=== PATIENT | male | born 1980 | race Caucasian/White ===

== ENCOUNTER 2018-08-14 16:24 | Outpatient (REF) | payer BC, SELFPAY ==
[2018-08-14 21:43] LABS: Abs Immature Grans 0.03 k/cumm (0.0-0.09); Absolute Basophil Count 0.03 k/cumm (0.0-0.2); Absolute Eosinophil Count 0.32 k/cumm (0.0-0.7); Absolute Monocyte Count 1.15 k/cumm (0.11-0.7); Absolute Neutrophil Count 7.64 k/cumm (1.2-6.7); Basophils % 0.2; Eosinophils % 2.4; HCT 46.4 % (40.0-50.0); HGB 15.7 g/dL (13.5-17.5); Immature Grans % 0.2; Lymphocytes % 30.9; Mean Corp. HGB Concentration 33.8 g/dL (32.0-36.0); Mean Corpuscular Hemoglobin 30.3 pg (27.0-33.0); Mean Corpuscular Volume 89.6 fL (80-95); Mean Platelet Volume 10.7 fL (8.0-11.0); Monocytes % 8.7; Neutrophils % 57.6; Platelet Count 319 x1000/uL (130-400); RBC 5.18 m/cumm (4.50-6.00); RBC Distribution Width 13.9 % (11.8-14.1); White Blood Cell Count 13.26 k/cumm (4.4-10.8)
[2018-08-14 22:31] LABS: ALT 43 U/L (12-78); AST 22 U/L (15-37); Albumin 4.1 g/dL (3.4-5.0); Alkaline Phosphatase 97 U/L (46-116); Anion Gap 11.9 mmol/L (3-11); BUN 11 mg/dL (7-18); Bilirubin, Total 0.5 mg/dL (0.2-1.0); CO2 26.1 mmol/L (21.0-32.0); CREATININE 0.91 mg/dL (0.70-1.30); Calcium 9.1 mg/dL (8.5-10.1); Chloride 105 mmol/L (98-107); Glucose 77 mg/dL (70-100); Lipase 108 U/L (73-393); Potassium 3.8 mmol/L (3.5-5.1); Sodium 143 mmol/L (136-145); Total Protein 7.3 g/dL (6.4-8.2)
== END 2018-08-14 16:44 ==
LOC: NCHCN 16:24
PROVIDERS: PCP Hospitalist; Visit Provider Registered Nurse
DX: R10.9 Unspecified abdominal pain (principal)
CPT/HCPCS: 80053; 83690; 85025

== ENCOUNTER 2020-11-10 12:50 | Outpatient (REF) | payer MEDICAID, SELFPAY ==
[2020-11-10 14:02] LABS: Iron 83 ug/dL (65-175); Total Iron Binding Capacity 351 ug/dL (250-450); Transferrin Sat 24 % (20-55)
[2020-11-10 14:16] LABS: Ferritin 74 ng/mL (26-388)
== END 2020-11-10 13:10 ==
LOC: NCHCN 12:50
PROVIDERS: PCP Hospitalist; Visit Provider Registered Nurse
DX: G25.81 Restless legs syndrome (principal)
CPT/HCPCS: 82728; 83540; 83550

== ENCOUNTER 2020-12-28 15:25 | Outpatient (REF) | payer MEDICAID, SELFPAY ==
[2020-12-28 14:14] LABS: Anion Gap 9.7 mmol/L (3-11); BUN 11 mg/dL (7-18); CO2 25.3 mmol/L (21.0-32.0); Calcium 8.9 mg/dL (8.5-10.1); Chloride 108 mmol/L (98-107); Glucose 93 mg/dL (74-106); Potassium 3.7 mmol/L (3.5-5.1); Sodium 143 mmol/L (136-145)
== END 2020-12-28 15:26 | disposition home or self-care (01) ==
LOC: NCHCN 15:25
PROVIDERS: PCP Hospitalist; Visit Provider Nurse Practitioner Family
DX: R10.9 Unspecified abdominal pain (principal)
CPT/HCPCS: 80048

== ENCOUNTER 2021-10-04 12:46 | Outpatient (REF) | payer MEDICAID, SELFPAY ==
[2021-10-04 22:09] LABS: Abs Immature Grans 0.03 10^3/uL (0.0-0.06); Absolute Basophil Count 0.02 10^3/uL (0.0-0.2); Absolute Eosinophil Count 0.12 10^3/uL (0.0-0.7); Absolute Lymphocyte Count 2.88 10^3/uL (1.2-3.4); Absolute Neutrophil Count 5.86 10^3/uL (1.2-6.7); Basophils % 0.2; Eosinophils % 1.3; HCT 45.9 % (40.0-50.0); HGB 15.2 g/dL (13.5-17.5); Immature Grans % 0.3; Lymphocytes % 30.3; MCH 28.5 pg (27.0-33.0); MCHC 33.1 % (32.0-36.0); MPV 10.7 fL (8.0-11.0); Monocytes % 6.3; Neutrophils % 61.6; Nucleated RBC 0 %; Platelet Count 324 10^3/uL (130-400); RBC 5.34 10^6/uL (4.36-5.78); RDW 12.8 % (11.8-14.1); RDW-SD 39.7 fL; WBC 9.51 10^3/uL (4.4-10.8)
[2021-10-04 22:51] LABS: ALT 46 U/L (16-63); AST 22 U/L (15-37); Albumin 4.4 g/dL (3.4-5.0); Alkaline Phosphatase 102 U/L (46-116); BUN 12 mg/dL (7-18); Bilirubin, Total 0.7 mg/dL (0.2-1.0); Chloride 103 mmol/L (98-107); Glucose 78 mg/dL (74-106); Potassium 4.1 mmol/L (3.5-5.1); Sodium 140 mmol/L (136-145); Total Protein 7.5 g/dL (6.4-8.2)
[2021-10-05 16:45] LABS: Lipase 72 U/L (73-393)
== END 2021-10-04 12:47 | disposition home or self-care (01) ==
LOC: NCHCN 12:46
PROVIDERS: PCP Hospitalist; Visit Provider Family Medicine
DX: R10.13 Epigastric pain (principal); Z28.21 Immunization not carried out because of patient refusal
CPT/HCPCS: 80053; 80061; 83690; 85025

== ENCOUNTER 2023-01-25 10:43 | Outpatient (REF) | payer MEDICAID, SELFPAY | END 2023-01-25 10:44 | disposition home or self-care (01) | LOC: NCHCN 10:43 | PROVIDERS: PCP Hospitalist; Visit Provider Registered Nurse | DX: R10.9 Unspecified abdominal pain (principal) | CPT/HCPCS: 87086 ==

== ENCOUNTER 2024-12-19 11:52 | Outpatient (REF) | payer MEDICAID, SELFPAY ==
[2024-12-19 14:18] LABS: HCT 49.7 % (40.0-50.0); HGB 16.5 g/dL (13.5-17.5); MCH 29.9 pg (27.0-33.0); MCHC 33.2 % (32.0-36.0); MCV 90 fL (80-95); MPV 10.5 fL (8.0-11.0); Platelet Count 318 10^3/uL (130-400); RBC 5.52 10^6/uL (4.36-5.78); RDW 13.1 % (11.8-14.1); RDW-SD 42.5 fL; WBC 9.91 10^3/uL (4.4-10.8)
[2024-12-19 14:35] LABS: ALT 32 U/L (16-63); AST 26 U/L (15-37); Albumin 4.3 g/dL (3.4-5.0); Alkaline Phosphatase 106 U/L (46-116); Anion Gap 5.8 mmol/L (3-11); BUN 8 mg/dL (7-18); Bilirubin, Total 0.68 mg/dL (0.2-1.0); CO2 31.2 mmol/L (21.0-32.0); Calcium 9.4 mg/dL (8.5-10.1); Calculated LDL 119 mg/dL (<100); Chloride 106 mmol/L (98-107); Cholesterol 193 mg/dL (<200); Estimated GFR 94.59 (mL/min/1.73m2); Glucose 85 mg/dL (74-106); HDL Cholesterol 28 mg/dL (40-60); Potassium 3.9 mmol/L (3.5-5.1); Sodium 143 mmol/L (136-145); Total Protein 7.7 g/dL (6.4-8.2); Triglyceride 233 mg/dL (<150)
[2024-12-19 14:36] LABS: Hemoglobin A1C 5.3 % (<5.7)
== END 2024-12-19 11:53 | disposition home or self-care (01) ==
LOC: NCHCN 11:52
PROVIDERS: PCP Family Medicine; Visit Provider Family Medicine
DX: R53.83 Other fatigue (principal); Z13.220 Encounter for screening for lipoid disorders; I10 Essential (primary) hypertension
CPT/HCPCS: 80053; 80061; 85027; 83036